=== PATIENT | female | born 1985 | race Caucasian/White ===

== ENCOUNTER 2023-08-01 08:49 | Emergency (ER) | payer OTHER ==
--- OUTSIDE RECORDS SUMMARY | 2023-08-01 08:52 | XMS REPORT | Continuity of Care Document ---
:1985 Author Organization [facility] t Address [address] [facility] [address] [place] [address] Care Team Providers Name Role Phone Bisi Jha Attending Clinician Unavailable Bisi Jha Admitting Clinician Unavailable Payers Payer Name Policy Type Policy Number Effective Date Expiration Date S ource Problems This patient has no known problems. Allergies, Adverse Reactions, Alerts Allergy Allergy Status Severity Reaction(s) Onset Inactive Treating Comm ents Source Name Type Date Date Clinician dinesh DA Active [place] [facility] per[facility] 07-19 [facility] 00:00: [address] cefaclor [place] [facility] 07-19 [facility] 00:00: [address] prochlor DA [place] rolled [facility] perazine to back of 07-19 [facility] us her head 00:00: [address] cefaclor DA Active [place] rash [facility] 07-19 Corpus 00:00: [address] Medications This patient has no known medications. Procedures Procedure Date / Time Performed Performing Clinician Charmaine davison [id number] 2020-11-28 00:00:00 CANCH.02 [facility] Corp[facility] C Health system Encounters Start End Encounter Admission Attending Care Care Encounter Source Date/Time Date/Time Type Type Clinicians Facility Department ID 2020-12-01 Inpatient EL NEGRA Jha LD [id number] [facility] 12:12:[address] Results Test Description Test Time Test Comments Results Result Comments Source AG HEPATITIS B SURFACE 2020-11-30 06:12:00 Test Item Value Reference Range Interpretation Comme nts AG HEPATITIS B SURFACE (test Negative Negative Performed At: HD [facility] code = HBSAG) [id number] No rth [place], [place] [id number] annemarie Daugherty MD Ph:[phone] RAPID PLASMA [id number] 10:22:00 Test Item Value Reference Range Interpretation Comments RAPID PLASMA REAGIN (test code = Nonreactive Nonreactive RPR) [id number] 08:53:00 Test Item Value Reference Range Interpretation Comments HEMATOCRIT (test code = HCT) 31.3 % 37-47 L UA RFLX [id number] 23:17:00 Test Item Value Reference Range Interpretation Comments UA COLOR (test code = COLU) Yellow YELLOW UA APPEARANCE (test code = CLEAR CLEAR APPU) UA GLUCOSE DIPSTICK (test NORMAL mg/dL NEGATIVE code = DGLUU) UA BILIRUBIN DIPSTICK (test NEGATIVE NEGATIVE code = BILU) UA KETONE DIPSTICK (test code NEGATIVE mg/dL NEGATIVE = KETU) UA SPECIFIC GRAVITY (test 1.025 1.001-1.035 N code = SGU) UA BLOOD DIPSTICK (test code NEGATIVE NEGATIVE = BILLY) UA PH DIPSTICK (test code = 6.0 5.5-7.0 N BLAIR) UA PROTEIN DIPSTICK (test 30 mg/dL NEGATIVE A code = PROU) UA UROBILINOGEN DIPSTICK NORMAL mg/dL NORMAL (test code = URO) UA NITRITE DIPSTICK (test NEGATIVE NEGATIVE code = RICARDO) UA LEUKOCYTE ESTERASE 250 NEGATIVE A DIPSTICK (test code = LEUU) UA COMMENT (test code = COMU) VOLUME 10-12 ML URINE SPECIMEN DESCRIPTION Clean Catch (test code = UASPEC) URINE SOURCE: Clean CatchUA [id number] 23:17:00 Test Item Value Reference Range Interpretation Comments UA WBC (test code = WBCU) #/hpf <10 UA RBC (test code = RBCU) #/HPF NONE SEEN UA SQUAMOUS CELLS (test code = SQU) #/lpf <100 UA CULTURE NEEDED? (test code = UACULT) URINE SOURCE: Clean CatchUA RFLX [id number] 23:17:00 Test Item Value Reference Range Interpretation Comments UA COLOR (test code = COLU) Yellow YELLOW UA APPEARANCE (test code = CLEAR CLEAR APPU) UA GLUCOSE DIPSTICK (test NORMAL mg/dL NEGATIVE code = DGLUU) UA BILIRUBIN DIPSTICK (test NEGATIVE NEGATIVE code = BILU) UA KETONE DIPSTICK (test code NEGATIVE mg/dL NEGATIVE = KETU) UA SPECIFIC GRAVITY (test 1.025 1.001-1.035 N code = SGU) UA BLOOD DIPSTICK (test code NEGATIVE NEGATIVE = BILLY) UA PH DIPSTICK (test code = 6.0 5.5-7.0 N BLAIR) UA PROTEIN DIPSTICK (test 30 mg/dL NEGATIVE A code = PROU) UA UROBILINOGEN DIPSTICK NORMAL mg/dL NORMAL (test code = URO) UA NITRITE DIPSTICK (test NEGATIVE NEGATIVE code = RICARDO) UA LEUKOCYTE ESTERASE 250 NEGATIVE A DIPSTICK (test code = LEUU) UA COMMENT (test code = COMU) VOLUME 10-12 ML URINE SPECIMEN DESCRIPTION Clean Catch (test code = UASPEC) URINE SOURCE: Clean CatchUA [id number] 23:17:00 Test Item Value Reference Range Interpretation Comments UA WBC (test code = WBCU) 11 - 20 #/HPF 0-10 A UA RBC (test code = RBCU) 0-2 #/HPF NONE SEEN UA SQUAMOUS CELLS (test code > 100 #/LPF <100 A = SQU) UA MUCUS (test code = MUCU) RARE #/lpf NONE SEEN UA CULTURE NEEDED? (test Criteria not met code = UACULT) URINE SOURCE: Clean CatchUA RFLX [id number] 23:17:00 Test Item Value Reference Range Interpretation Comments UA COLOR (test code = COLU) Yellow YELLOW UA APPEARANCE (test code = CLEAR CLEAR APPU) UA GLUCOSE DIPSTICK (test NORMAL mg/dL NEGATIVE code = DGLUU) UA BILIRUBIN DIPSTICK (test NEGATIVE NEGATIVE code = BILU) UA KETONE DIPSTICK (test code NEGATIVE mg/dL NEGATIVE = KETU) UA SPECIFIC GRAVITY (test 1.025 1.001-1.035 N code = SGU) UA BLOOD DIPSTICK (test code NEGATIVE NEGATIVE = BILLY) UA PH DIPSTICK (test code = 6.0 5.5-7.0 N BLAIR) UA PROTEIN DIPSTICK (test 30 mg/dL NEGATIVE A code = PROU) UA UROBILINOGEN DIPSTICK NORMAL mg/dL NORMAL (test code = URO) UA NITRITE DIPSTICK (test NEGATIVE NEGATIVE code = RICARDO) UA LEUKOCYTE ESTERASE 250 NEGATIVE A DIPSTICK (test code = LEUU) UA COMMENT (test code = COMU) VOLUME 10-12 ML URINE SPECIMEN DESCRIPTION Clean Catch (test code = UASPEC) URINE SOURCE: Clean CatchUA [id number] 23:17:00 Test Item Value Reference Range Interpretation Comments UA WBC (test code = WBCU) #/hpf <10 UA RBC (test code = RBCU) #/HPF NONE SEEN UA SQUAMOUS CELLS (test code = SQU) #/lpf <100 UA CULTURE NEEDED? (test code = UACULT) URINE SOURCE: Clean CatchCOVID 19 Asymptomatic IH [id number] 22:21:00 Test Item Value Reference Interpretation Comments Range COVID 19 NEGATIVE Negative " The Nesha BILLY S Antigen ANNA Asymptomatic IH does not dif ferentiate AG (test code = betweenSARS- CoV and SARS-CoV-2 " COVNONPUIAG) The [employer]ha SARS Antigen ANNA employs immunofluoresce ncetechnology in a sandwich deepa gn that is used with Nesha tode tect nucleocapsid protein from SA RS-CoV and SARS-CoV-2.This test allows for the detection o f SARS-CoV [id number]. The test detects, but does not differentiate,b etween the two viruses. " Resu lts are for the identification of PDZG-CzG-5lwmoo ocapsid protein antigen. Antige n is generallydetect able in upper respiratory spe cimens during the acutephase of i nfection. Positive result s indicate the presenceof chetan l antigens, but clinical correl ation with patienthistory and other diagnostic info rmation is necessary todet ermine infection status. Positiv e results do not rule outbacteri al infection or co-infection wi th other viruses. Theagent detect ed may not be the definite cause of disease. " Negative result s should be treated as pres umptive " This test has not be en FDA cleared or approved; the t esthas been authorized by Howie ARZO under an Emergency UseAu thorization (EUA) for use by labo ratories certified under the CLIA that meet the requir ements to perform moderate,high o r waived complexity test s. This test is authorized foru se at the Point of Care (POC), i.e., in patient caresettings op erating under a CLIA Certificat e of Waiver,Certific ate of Compliance, or Certificate of Accreditation COMPREHENSIVE METABOLIC [id number] 22:15:00 Test Item Value Reference Range Interpretation Comments SODIUM (test code = 132 MMOL/L 133-145 L NA) POTASSIUM (test code = 3.9 MMOL/L 3.6-5.2 N K) CHLORIDE (test code = 99 MMOL/L 100-108 L CL) CARBON DIOXIDE (test 27 MMOL/L 22-32 N code = CO2) GLUCOSE (test code = 80 MG/DL 65-99 N Results of this GLU) assay method yoshi y be falsely depress ed orelevated if patient is taki ng sulfasalazine. BLOOD UREA NITROGEN 11 MG/DL 6-20 N (test code = BUN) GLOMERULAR FILTRATION 94 64-149 N Report ing units: RATE (test code = GFR) mL/mi n/1.73m\\S\\2 (Modified MDRD Formula) CREATININE (test code 0.70 MG/DL 0.60-1.00 N = CREAT) TOTAL PROTEIN (test 7.9 G/DL 6.4-8.2 N code = PROT) ALBUMIN (test code = 3.0 G/DL 3.4-5.0 L ALB) GLOBULIN (test code = 4.9 G/DL 1.5-3.8 H GLOB) ALBUMIN/GLOBULIN RATIO 0.6 1.1-2.2 L (test code = A/G) CALCIUM (test code = 9.1 MG/DL 8.7-10.5 N CA) BILIRUBIN TOTAL (test 0.3 MG/DL 0.0-1.0 N code = BILT) SGOT/AST (test code = 18 Units/L 15-37 N Result s of this AST) assay method yoshi y be falsely depress ed orelevated if patient is taki ng sulfasalazine. SGPT/ALT (test code = 16 Units/L 30-65 L Result s of this ALT) assay method yoshi y be falsely depress ed orelevated if patient is taki ng sulfasalazine. ALKALINE PHOSPHATASE 148 Units/L 50-136 H TOTAL (test code = ALKP) URIC [id number] 22:15:00 Test Item Value Reference Range Interpretation Comments URIC ACID (test code = URIC) 4.3 MG/DL 2.6-6.0 N LACTIC DEHYDROGENASE(LDH)2020-11-28 22:15:00 Test Item Value Reference Range Interpretation Comments LACTIC DEHYDROGENASE(LDH) (test 199 Units/L 81-234 N code = LDH) CBC W/AUTO [id number] 22:05:00 Test Item Value Reference Range Interpretation Comments WHITE BLOOD CELL (test code = 9.10 x10 3/uL 4.80-10.80 N WBC) RED BLOOD CELL (test code = 4.24 x10 6/uL 4.2-5.4 N RBC) HEMOGLOBIN (test code = HGB) 13.0 G/DL 12.0-16.0 N HEMATOCRIT (test code = HCT) 38.5 % 37-47 N MEAN CELL VOLUME (test code = 90.8 FL 81-99 N MCV) MEAN CELL HGB (test code = MCH) 30.7 PG 27-31 N MEAN CELL HGB CONCENTRATION 33.8 G/DL 33-37 N (test code = MCHC) RED CELL DISTRIBUTION WIDTH 12.2 % 11.5-14.5 N (test code = RDW) PLATELET COUNT (test code = 282 x10 3/uL 150-450 N PLT) MEAN PLATELET VOLUME (test code 10.4 FL 7.4-10.4 N = MPV) NEUTROPHIL % (test code = NT%) 66.2 % 42-86 N IMMATURE GRANULOCYTE % (test 0.3 % 0.0-2.0 N code = IG%) LYMPHOCYTE % (test code = LY%) 27.8 % 24-44 N MONOCYTE % (test code = MO%) 5.1 % 0.0-4.0 H EOSINOPHIL % (test code = EO%) 0.4 % 0.0-2.7 N BASOPHIL % (test code = BA%) 0.2 % 0.0-0.5 N NUCLEATED RBC % (test code = 0.0 % 0.0-0.0 N NRBC%) NEUTROPHIL # (test code = NT#) 6.02 x10 3/uL 1.8-7.7 N IMMATURE GRANULOCYTE # (test 0.03 x10 3/uL 0.00-0.03 N code = IG#) LYMPHOCYTE # (test code = LY#) 2.53 x10 3/uL 1.0-4.8 N MONOCYTE # (test code = MO#) 0.46 x10 3/uL 0.0-0.8 N EOSINOPHIL # (test code = EO#) 0.04 x10 3/uL 0.0-0.5 N BASOPHIL # (test code = BA#) 0.02 x10 3/uL 0.0-0.2 N NUCLEATED RBC # (test code = 0.0 X10 3/uL 0.0-0.2 N NRBC#) Notes Date/Time Note Provider Source 2020-11-30 08:10:00-00:00 [facility] OB Postpart Progr Note REPORT#:[id number] REPORT STATUS: Signed DATE:11/30/20 TIME: 809 PATIENT: MICHAEL MERINO UNIT #: [id number] ROOM/BED: [place] [address] : [birth year] AGE: 35 SEX: F ATTEND: Sandra Montejo MD ADM AUTHOR: Ryann Wright MD * ALL edits or amendments must be made on the el ectronic/computer document * Subjective Subjective Admission EGA: Weeks: 38 Days: 4 Status/Day: post (day 2) Patient reports: Patient reports: Yes no complaints Objective Nursing Documentation Review Nursing Data: The data set between the solid lines has been im ported from nursing documentation. Any exceptions have been noted be low under Provider comments. Feeding preference: Provider comments on imported nursing data: [] General VS: Vital Signs: Date Time Temp Pulse Resp B/P B/P Pulse O2 O2 F low FiO2 Mean Ox Delivery Rate 11/30 0400 97.7 64 18 112/78 98 11/29 2340 97.5 64 18 136/81 98 11/29 2026 98.2 69 18 121/84 98 11/29 1600 97.8 72 18 118/77 11/29 1245 98.0 67 18 141/84 PATIENT WEIGHT: Weight (lb): 160 Weight (oz): Weight (kg): 72.575 Physical Exam Neuro: Exam: alert, oriented x3, normal speech Abdomen: soft, no abnormal tenderness, no guardi ng Fundus: firm, non-tender Lower extremities: Calf tenderness: negative Result Findings/Data: Laboratory Tests: 11/29 0840 Hematology Hct (37 - 47 %) 31.3 L Diagnosis, Assessment Plan Diagnosis, Assessment Plan Assessment: nml progress, hay ast feeding w/o diff, acute blood loss anemia Plan: routine care, reviewed PIH s/sx w/ pt Electronically Signed by Ryann Wright MD o n 11/30/20 at 0811 RPT #:[id number] END OF REPORT 2020-11-29 09:26:00-00:00 [facility] OB Postpart Progr Note REPORT#:[id number] REPORT STATUS: Signed DATE:11/29/20 TIME: 925 PATIENT: MICHAEL MERINO UNIT #: [id number] ROOM/BED: Y213-1 : 83 AGE: 35 SEX: F ATTEND: Sandra Montejo MD ADM AUTHOR: Bisi Jha MD * ALL edits or amendments must be made on the el [employer]/computer document * Subjective Subjective Admission EGA: Weeks: 38 Days: 4 Status/Day: post (1) Patient reports: Patient reports: Yes pain management effective, No no complaints Objective Nursing Documentation Review Nursing Data: The data set between the solid lines has been im ported from nursing documentation. Any exceptions have been noted be low under Provider comments. Feeding preference: Provider comments on imported nursing data: [] General VS: Vital Signs: Date Time Temp Pulse Resp B/P B/P Pulse O2 O2 F low FiO2 Mean Ox Delivery Rate 11/29 0432 96.0 11/29 043 61 125/79 11/29 0401 110.0 11/29 0401 67 143/87 11/29 0331 110.0 11/29 0331 73 144/86 11/29 0308 106.0 11/29 0308 79 139/84 11/29 0234 104.0 11/29 0234 71 130/85 11/29 0219 108.0 11/29 0219 78 139/88 11/29 0204 108.0 11/29 0204 80 141/86 11/29 0149 104.0 11/29 0149 78 139/80 11/29 0129 111.0 11/29 0129 72 139/92 11/29 0117 108.0 11/29 0117 67 140/91 11/29 0031 116.0 11/29 0031 81 153/90 11/29 0029 119.0 11/29 0029 83 162/91 98 11/29 0024 81 98 11/29 0019 81 99 11/29 0014 76 98 11/29 0013 107.0 11/29 0013 76 157/74 11/29 0009 79 98 11/29 0004 86 98 11/28 2359 84 98 11/28 2354 88 98 11/28 2349 84 99 11/28 2344 80 99 11/28 2339 83 99 11/28 2334 78 99 11/28 2329 109.0 11/28 2329 83 147/83 98 11/28 2324 79 99 11/28 2319 85 99 11/28 2314 87 99 11/28 2309 92 100 11/28 2304 94 100 11/28 2300 98.5 11/28 2300 113.0 11/28 2300 89 144/92 11/28 2259 94 100 11/28 2144 111.0 11/28 2144 78 140/89 11/28 2043 107.0 11/28 2043 100 131/92 11/28 2029 107.0 11/28 2029 90 133/91 11/28 2013 105.0 11/28 2013 101 128/91 11/28 1999 107.0 11/28 1999 110 131/91 11/28 1944 134.0 11/28 194 98.7 92 17 179/108 PATIENT WEIGHT: Weight (lb): 160 Weight (oz): Weight (kg): 72.575 Physical Exam Fundus: firm, non-tender Lower extremities: Calf tenderness: negative Result Findings/Data: Laboratory Tests: 11/29 11/28 11/28 0840 2129 2125 Chemistry Sodium (133 - 145 MMOL/L) 132 L Potassium (3.6 - 5.2 MMOL/L) 3.9 Chloride (100 - 108 MMOL/L) 99 L Carbon Dioxide (22 - 32 MMOL/L) 27 BUN (6 - 20 MG/DL) 11 Creatinine (0.60 - 1.00 MG/DL) 0.70 Estimated GFR (MDRD) (64 - 149) 94 Glucose (65 - 99 MG/DL) 80 Uric Acid (2.6 - 6.0 MG/DL) 4.3 Calcium (8.7 - 10.5 MG/DL) 9.1 Total Bilirubin (0.0 - 1.0 MG/DL) 0.3 AST (15 - 37 Units/L) 18 ALT (30 - 65 Units/L) 16 L Alkaline Phosphatase (50 - 136 Units/L) 148 H Lactate Dehydrogenase (81 - 234 Units/L) 199 Total Protein (6.4 - 8.2 G/DL) 7.9 Albumin (3.4 - 5.0 G/DL) 3.0 L Globulin (1.5 - 3.8 G/DL) 4.9 H Albumin/Globulin Ratio (1.1 - 2.2) 0.6 L Hematology WBC (4.80 - 10.80 x10 3/uL) 9.10 RBC (4.2 - 5.4 x10 6/uL) 4.24 Hgb (12.0 - 16.0 G/DL) 13.0 Hct (37 - 47 %) 31.3 L 38.5 MCV (81 - 99 FL) 90.8 MCH (27 - 31 PG) 30.7 MCHC (33 - 37 G/DL) 33.8 RDW Coeff of [place] (11.5 - 14.5 %) 12.2 Plt Count (150 - 450 x10 3/uL) 282 MPV (7.4 - 10.4 FL) 10.4 Neut % (Auto) (42 - 86 %) 66.2 Lymph % (Auto) (24 - 44 %) 27.8 [place] % (Auto) (0.0 - 4.0 %) 5.1 H Eos % (Auto) (0.0 - 2.7 %) 0.4 Baso % (Auto) (0.0 - 0.5 %) 0.2 Eos # (Auto) (0.0 - 0.5 x10 3/uL) 0.04 Baso # (Auto) (0.0 - 0.2 x10 3/uL) 0.02 Abs Immat Gran (auto) (0.00 - 0.03 x10 3/uL) 0. 03 Absolute Neuts (auto) (1.8 - 7.7 x10 3/uL) 6.02 Absolute Lymphs (auto) (1.0 - 4.8 x10 3/uL) 2.5 3 Absolute Monos (auto) (0.0 - 0.8 x10 3/uL) 0.46 Absolute Nucleated RBC (0.0 - 0.2 X10 3/uL) 0. 0 Immature Gran % (0.0 - 2.0 %) 0.3 Nucleated RBC % (0.0 - 0.0 %) 0.0 Serology SARS-CoV-2 Ag (Rapid) (Negative) NEGATIVE 11/28 1899 Urines Ur Spec Description Clean Catch Urine Color (YELLOW) Yellow Urine Appearance (CLEAR) CLEAR Urine pH (5.5 - 7.0) 6.0 Ur Specific [place] (1.001 - 1.035) 1.025 Urine Protein (NEGATIVE mg/dL) 30 A Urine Glucose (UA) (NEGATIVE mg/dL) NORMAL Urine Ketones (NEGATIVE mg/dL) NEGATIVE Urine Blood (NEGATIVE) NEGATIVE Urine Nitrite (NEGATIVE) NEGATIVE Urine Bilirubin (NEGATIVE) NEGATIVE Urine Urobilinogen (NORMAL mg/dL) NORMAL Ur Leukocyte Esterase (NEGATIVE) 250 A Urine RBC (NONE SEEN #/HPF) 0-2 Urine WBC (0 - 10 #/HPF) 11 - 20 H Ur Squamous Epith Cells (<100 #/LPF) > 100 A Urine Mucus (NONE SEEN #/lpf) RARE Urine Culture Screen Criteria not met Urine Comment VOLUME 10-12 ML Microbiology: Date/Time Procedure - Status Source Growth 11/28 1899 Urine Culture - RECD URINE Diagnosis, Assessment Plan Diagnosis, Assessment Plan Assessment: nml progress, breast feed ing w/o diff Plan: routine care, discharge tomorro w Plan discussed with: patient, spouse/partner at 0926 RPT #:[id number] END OF REPORT
--- NOTE | 2023-08-01 09:37 | ER ---
Nurse's Notes [facility] Name: Sol Beckman Age: 38 yrs Sex: Female : 1985 Arrival Date: 08/01/2023 Time: 08:49 Bed 12 Private MD: Diagnosis: Encounter for removal of sutures Presentation: 08/01 09:06 Chief complaint: Sutures to right neck on 07/22, here for removal. Coronavirus screen: At this time, the client does not indicate any symptoms associated with coronavirus-19. Ebola Screen: No symptoms or risks identified at this time. Initial Sepsis Screen: Does the patient meet any 2 criteria? No. Patient's initial sepsis screen is negative. Does the patient have a suspected source of infection? No. Patient's initial sepsis screen is negative. Risk Assessment: Do you want to hurt yourself or someone else? Patient reports no desire to harm self or others. Onset of symptoms was August 01, 2023. 09:06 Method Of Arrival: Ambulatory 09:06 Acuity: SONYA 4 hb Triage Assessment: 09:06 General: Appears in no apparent distress. Behavior is calm, cooperative. Pain: Denies hb pain. EENT: No signs and/or symptoms were reported regarding the EENT system. Neuro: Level of Consciousness is awake, alert, obeys commands, Oriented to person, place, time, situation. Cardiovascular: Patient's skin is warm and dry. Respiratory: Respiratory effort is even, unlabored, Respiratory pattern is regular, symmetrical. GI: No signs and/or symptoms were reported involving the gastrointestinal system. : No signs and/or symptoms were reported regarding the genitourinary system. Derm: sutures to right neck. Musculoskeletal: No signs and/or symptoms reported regarding the musculoskeletal system. 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 - Social history:: Smoking status: Patient denies any tobacco usage or history of. Screenin:07 [facility] ED Fall Risk Assessment (Adult) Score/Fall Risk Level 0 - 2 = Low Risk hb Oriented to surroundings, Maintained a safe environment, Educated pt \T\ family on fall prevention, incl call for assistance when getting out of bed. Abuse screen: Denies threats or abuse. Denies injuries from another. Nutritional screening: No deficits noted. Tuberculosis screening: No symptoms or risk factors identified. Assessment: 09:07 General: See triage assessment. hb Vital Signs: 09:11 BP 117 / 74; Pulse 61; Resp 17; Temp 97.9; Pulse Ox 100% ; Pain 0/10; jl7 09:11 Pain Scale: Adult jl7 ED Course: 08:55 Patient arrived in ED. mg5 08:55 Reza Mathur MD is Attending Physician. [facility] 09:06 Triage completed. hb 09:06 Arm band placed on. hb 09:07 Patient has correct armband on for positive identification. Provided Education on: . hb 09:07 No provider procedures requiring assistance completed. Patient did not have IV access hb during this emergency room visit. 09:11 Deja Workman, RN is Primary Nurse. [facility] 09:26 Removal of Removed sutures from right submandibular area Suture site is well healed jl7 Patient tolerated well. Administered Medications: No medications were administered Medication: 09:07 VIS not applicable for this client. hb Outcome: 09:37 Discharge ordered by . [facility] 09:42 Discharged to home ambulatory. hb 09:42 Condition: stable 09:42 Discharge instructions given to patient, Instructed on discharge instructions, follow up and referral plans. medication usage, wound care, Demonstrated understanding of instructions, follow-up care, medications, wound care. 09:42 Patient left the ED. hb Signatures: Reza Mathur MD MD cha Baxter, Heather, RN RN Deja Workman, ISAIAS RN [facility] mg5
--- NOTE | 2023-08-01 09:37 | EDPHYS ---
Physician Documentation [facility] Name: Sol Beckman Age: 38 yrs Sex: Female : 1985 Arrival Date: 08/01/2023 Time: 08:49 Bed 12 Private MD: Reza Keller HPI: 08/01 09:33 This 38 yrs old Female presents to ER via Ambulatory with complaints of thang Suture Removal. 09:33 The patient has sutures on the right submandibular area. Previous treatment: The thagn patient was initially treated 10 day(s) ago. Sutures/julio progress: The patient has no c/o's. The wound is well-healing with no redness, swelling, discharge, or dehiscence reported. The patient has not experienced similar symptoms in the past. V[employer]ER: 09:11 LMP N/A - control method jl7 Historical: - Allergies: 09:06 Ceclor; hb 09:06 Compazine; hb - Home Meds: 09:06 None [Active]; hb - PMHx: 09:06 Migraine; hb - PSHx: 09:06 None; hb - Immunization history:: Adult Immunizations up to date. - Social history:: Smoking status: Patient denies any tobacco usage or history of. ROS: 09:34 Constitutional: Negative for fever, chills, and weight loss, Eyes: Negative for injury, thang pain, redness, and discharge, ENT: Negative for injury, pain, and discharge, Neck: Negative for injury, pain, and swelling, Cardiovascular: Negative for chest pain, palpitations, and edema, Respiratory: Negative for shortness of breath, cough, wheezing, and pleuritic chest pain, Abdomen/GI: Negative for abdominal pain, nausea, vomiting, diarrhea, and constipation, Back: Negative for injury and pain, : Negative for injury, bleeding, discharge, and swelling, MS/Extremity: Negative for injury and deformity, Neuro: Negative for headache, weakness, numbness, tingling, and seizure, Psych: Negative for depression, anxiety, suicide ideation, homicidal ideation, and hallucinations, Allergy/Immunology: Negative for hives, rash, and allergies, Endocrine: Negative for neck swelling, polydipsia, polyuria, polyphagia, and marked weight changes, Hematologic/Lymphatic: Negative for swollen nodes, abnormal bleeding, and unusual bruising. 09:34 Skin: Positive for sutures on right submandibular area. Exam: 09:34 Constitutional: This is a well developed, well nourished patient who is awake, alert, thang and in no acute distress. Head/Face: Normocephalic, atraumatic. Eyes: Pupils equal round and reactive to light, extra-ocular motions intact. Lids and lashes normal. Conjunctiva and sclera are non-icteric and not injected. Cornea within normal limits. Periorbital areas with no swelling, redness, or edema. ENT: Nares patent. No nasal discharge, no septal abnormalities noted. Tympanic membranes are normal and external auditory canals are clear. Oropharynx with no redness, swelling, or masses, exudates, or evidence of obstruction, uvula midline. Mucous membranes moist. Neck: Trachea midline, no thyromegaly or masses palpated, and no cervical lymphadenopathy. Supple, full range of motion without nuchal rigidity, or vertebral point tenderness. No Meningismus. Chest/axilla: Normal chest wall appearance and motion. Nontender with no deformity. No lesions are appreciated. Cardiovascular: Regular rate and rhythm with a normal S1 and S2. No gallops, murmurs, or rubs. Normal PMI, no JVD. No pulse deficits. Respiratory: Lungs have equal breath sounds bilaterally, clear to auscultation and percussion. No rales, rhonchi or wheezes noted. No increased work of breathing, no retractions or nasal flaring. Abdomen/GI: Soft, non-tender, with normal bowel sounds. No distension or tympany. No guarding or rebound. No evidence of tenderness throughout. Back: No spinal tenderness. No costovertebral tenderness. Full range of motion. Skin: Warm, dry with normal turgor. Normal color with no rashes, no lesions, and no evidence of cellulitis. MS/ Extremity: Pulses equal, no cyanosis. Neurovascular intact. Full, normal range of motion. Neuro: Awake and alert, GCS 15, oriented to person, place, time, and situation. Cranial nerves II-XII grossly intact. Motor strength 5/5 in all extremities. Sensory grossly intact. Cerebellar exam normal. Normal gait. Psych: Awake, alert, with orientation to person, place and time. Behavior, mood, and affect are within normal limits. 09:34 Skin: Wound recheck: Suture laceration closure: the wound is healing well, the edges are well approximated, no evidence of dehiscence, no drainage, no erythema, no swelling. Vital Signs: 09:11 BP 117 / 74; Pulse 61; Resp 17; Temp 97.9; Pulse Ox 100% ; Pain 0/10; jl7 09:11 Pain Scale: Adult jl7 Procedures: 09:35 Suture/Staple removal: Removed 5 julio, from right submandibular area, site appears thang well healed, dressed with Neosporin, Patient tolerated well. MDM: 08:55 Patient medically screened. [facility] 09:35 Data reviewed: vital signs, nurses notes. Consideration of Admission/Observation thang Escalation of care including admission/observation considered. I considered the following discharge prescriptions or medication management in the emergency department Medications were administered in the Emergency Department. See MAR. Care significantly affected by the following chronic conditions: migraine. Administered Medications: No medications were administered Disposition Summary: 08/01/23 09:37 Discharge Ordered Location: Home thang Problem: new thang Symptoms: have improved thang Condition: Stable thang Diagnosis - Encounter for removal of sutures thang Followup: thang - With: Private Physician - When: 2 - 3 days - Reason: Recheck today's complaints, Continuance of care, Re-evaluation by your physician Discharge Instructions: - Discharge Summary Sheet thang - Suture Removal, Care After thang Forms: - Medication Reconciliation Form thang - Thank You Letter thang - Antibiotic Education thang - Prescription Opioid Use thang - Patient Portal Instructions thang - Leadership Thank You Letter thang Signatures: Reza Mathur MD MD cha Baxter, Heather, RN RN
[2023-08-01 09:51] VITALS: BP 117/74; TEMP 97.9; O2SAT 100
== END 2023-08-01 09:42 | disposition home or self-care (01) ==
LOC: ER 08:49
DX: Z48.02 Encounter for removal of sutures (principal)
CPT/HCPCS: 99283